=== PATIENT | female | born 1985 | race Caucasian/White ===

== ENCOUNTER → 2018-10-13 | Outpatient (CLI) | payer OTHER ==
--- NOTE | 2018-10-13 13:36 | RADIOLOGY REPORT (SQ) ---
EXAM DESCRIPTION: CT ABD/PELVIS NO ORAL OR IV COMPLETED DATE/TIME: 10/13/2018 1:17 pm REASON FOR STUDY: UNSP INTESTNL OBST, UNSP TO PARTIAL VERSUS COMPLETE OBST (K56.609) K56.609 UNS P INTESTNL OBST, UNSP TO PARTIAL VERSUS COMPLE COMPARISON: None. TECHNIQUE: CT scan of the abdomen and pelvis performed without intravenous or oral contrast. Images reviewed with lung, soft tissue, and bone windows. Reconstructed coronal and sagittal MPR images revi ewed. All images stored on PACS. All CT scanners at this facility use dose modulation, iterative reconstruction, and/or weight based d osing when appropriate to reduce radiation dose to as low as reasonably achievable (ALARA). [facility]: Dose Right [facility]: CareDose [facility]: Dose Right [facility]: Teradose 4D [facility]: MyRefers RADIATION DOSE: CT Rad equipment meets quality standard of care and radiation dose reduction techniq ues were employed. CTDIvol: 3.5 mGy. DLP: 186 mGy-cm.mGy. LIMITATIONS: None. FINDINGS: LOWER CHEST: No significant findings. No nodules or infiltrates. NON-CONTRASTED LIVER, SPLEEN, ADRENALS: Evaluation limited by lack of IV contrast. No identified sign ificant masses. PANCREAS: No masses. No peripancreatic inflammatory changes. GALLBLADDER: No identified stones by CT criteria. No inflammatory changes to suggest cholecystitis. RIGHT KIDNEY AND URETER: No suspicious masses. Assessment limited by lack of IV contrast. No signif icant calcifications. No hydronephrosis or hydroureter. LEFT KIDNEY AND URETER: No suspicious masses. Assessment limited by lack of IV contrast. No signifi cant calcifications. No hydronephrosis or hydroureter. AORTA AND RETROPERITONEUM: No aneurysm. No retroperitoneal masses or adenopathy. BOWEL AND PERITONEAL CAVITY: No obvious masses or inflammatory changes. No free fluid. APPENDIX: Normal. PELVIS, BLADDER, AND ABDOMINAL WALL:No abnormal masses. No free fluid. Bladder normal. BONES: No significant findings. OTHER: No other significant finding. IMPRESSION: No evidence of intestinal obstruction or other acute intraabdominal process. COMMENT: Quality ID # [id number]: Final reports with documentation of one or more dose reduction techniques (e.g., Automated exposure control, adjustment of the mA and/or kV according to patient size, use of iterative reconstruction technique) TECHNICAL DOCUMENTATION: JOB ID: [id number] [employer]- All Rights Reserved Reading location - IP/workstation name: [email or web address]
== END ==
LOC: RAD 12:45
PROVIDERS: ATTEND Internal Medicine Gastroenterology
DX: K50.10 Crohn's disease of large intestine without complications (principal)
CPT/HCPCS: 74176

== ENCOUNTER → 2018-10-25 | Outpatient (CLI) | payer OTHER ==
--- NOTE | 2018-10-25 16:44 | RADIOLOGY REPORT (SQ) ---
EXAM DESCRIPTION: UPPER GI/SM BOWEL COMPLETED DATE/TIME: 10/25/2018 11:45 am REASON FOR STUDY: CROHN'S COLITIS K50.10 CROHN'S DISEASE OF LARGE INTESTINE WITHOUT COMPLICATI COMPARISON: CT abdomen pelvis 10/13/2018 TECHNIQUE: Under fluoroscopic guidance, patient ingested effervescent granules followed by thick and thin barium. Fluoroscopic spot images and routine radiographic images acquired and stored on PACS. Barium followed through the small bowel and into the colon with serial overhead films. 12 MM BARIUM TABLET GIVEN: No. LIMITATIONS: None. FLUOROSCOPY TIME: FLUORO TIME: 4.1 minutes 21 series of digital fluoro images saved to PACS. FINDINGS: NEUROMUSCULAR COORDINATION OF SWALLOW: Normal. No aspiration. ESOPHAGEAL MOTILITY: Normal peristalsis. No esophageal spasm. ESOPHAGEAL MUCOSA: Normal mucosa without masses or ulceration. GASTRO-ESOPHAGEAL JUNCTION: No hiatal hernia or reflux. STOMACH: There are linear folds in the gastric antrum question healed gastric ulcer. Mild mucosal no dularity along the greater curvature body of stomach. Patient has a history of Crohn's disease, smal l post inflammatory pseudopolyps along the greater curvature of the stomach may be present. GASTRIC OUTLET: No delay in emptying. Normal pylorus. DUODENAL BULB: Normal distention. No spasm or ulceration. DUODENUM: Mucosa normal. No extrinsic masses or malrotation. PROXIMAL SMALL BOWEL: Mucosa normal. No extrinsic masses or malrotation. MID SMALL BOWEL: Mucosa normal. No diverticuli. No tethered appearing loops. DISTAL SMALL BOWEL: Mucosa normal. No diverticuli. No tethered appearing loops. Distal ileum unre markable. ASCENDING COLON: No annular constricting lesions. No focal narrowing NON-GI TRACT STRUCTURES: No significant finding. OTHER: No other significant finding. IMPRESSION: GREATER CURVATURE AND GASTRIC ANTRUM MUCOSAL IRREGULARITY, QUESTION EARLY FORMATION OF I NFLAMMATORY PSEUDO POLYPS ALONG THE GREATER CURVATURE OF THE STOMACH. QUESTION HEALING OR HEALED GAS TRIC ANTRAL ULCER. OTHERWISE, UNREMARKABLE DOUBLE CONTRAST BARIUM SWALLOW / UPPER GI SERIES/ SMALL BOWEL FOLLOW-THROUGH. COMMENT: Quality ID [id number]: Final reports for procedures using fluoroscopy that document radiation exp osure indices, or exposure time and number of fluorographic images (if radiation exposure indices are not available) TECHNICAL DOCUMENTATION: JOB ID: [id number] [employer]- All Rights Reserved Reading location - IP/workstation name: [email or web address]
== END ==
LOC: RAD 09:12
PROVIDERS: ATTEND Internal Medicine Gastroenterology
DX: K50.10 Crohn's disease of large intestine without complications (principal)
CPT/HCPCS: 74249

== ENCOUNTER 2019-03-02 14:36 | Emergency (ER) | payer OTHER ==
--- NOTE | 2019-03-02 15:50 | ER Document Report ---
ED Medical Screen (RME) - General Chief Complaint: Rectal Bleeding Stated Complaint: RECTAL BLEEDING Time Seen by Provider: 03/02/19 15:46 Primary Care Provider: LUKAS LIRA MD [Primary Care Provider] - Follow up as needed Notes: 33-year-old female presented to ED for complaint of large amount of rectal bleeding yesterday and today. She has a history of ulcerative colitis as well as Crohn's. She states that when she has a flareup sometimes she bleeds and she understands that but today the bleeding is been more than normal she is also had a migraine about the same time she is been bleeding in her toes have been cold and purple. She states she called her primary care and they sent her to the emergency room because they could not see her until Thursday. Patient states she has been increasing her fluid intake but she just wanted to be evaluated. I have greeted and performed a rapid initial assessment of this patient. A comprehensive ED assessment and evaluation of the patient, analysis of test results and completion of medical decision making process will be conducted by an additional ED providers. Dictation of this chart was performed using voice recognition software; therefore, there may be some unintended grammatical errors. TRAVEL OUTSIDE OF THE [place] IN LAST 30 DAYS: No - Related Data Allergies/Adverse Reactions: ibuprofen Allergy (Verified 03/02/19 14:39) Past Medical History - Social History Frequency of alcohol use: None Drug Abuse: None Pulmonary Medical History: Reports: Hx Asthma Renal/ Medical History: Denies: Hx Peritoneal Dialysis Past Surgical History: Reports: Hx Section Physical Exam - Vital signs Vitals: Temp Pulse Resp BP Pulse Ox 98.8 F 80 16 126/83 H 99 03/02/19 14:55 03/02/19 14:55 03/02/19 14:55 03/02/19 14:55 03/02/19 14:55 Course - Vital Signs Vital signs: Temp Pulse Resp BP Pulse Ox 98.8 F 80 16 126/83 H 99 03/02/19 14:55 03/02/19 14:55 03/02/19 14:55 03/02/19 14:55 03/02/19 14:55 Doctor's Discharge - Discharge Referrals: LUKAS LIRA MD [Primary Care Provider] - Follow up as needed
[2019-03-02 16:30] LABS: ABSOLUTE EOSINOPHILS # (AUTO) 0.2 10^3/uL (0.0-0.6); ABSOLUTE LYMPHOCYTES (AUTO) 2.5 10^3/uL (0.5-4.7); ABSOLUTE MONOCYTES (AUTO) 0.5 10^3/uL (0.1-1.4); ABSOLUTE NEUT (AUTO) 5.1 10^3/uL (1.7-8.2); BASOPHILS % (AUTO) 0.5 % (0-2); EOSINOPHILS % (AUTO) 1.9 % (0-6); HEMATOCRIT 39.8 % (36.0-47.0); HEMOGLOBIN 13.4 g/dL (12.0-15.5); LYMPHOCYTES % (AUTO) 29.6 % (13-45); MEAN CORPUSCULAR HEMOGLOBIN 30.3 pg (27.0-33.4); MEAN CORPUSCULAR HGB CONC 33.7 g/dL (32.0-36.0); MEAN CORPUSCULAR VOLUME 90 fl (80-97); MONOCYTES % (AUTO) 6.4 % (3-13); PLATELET COUNT 269 10^3/uL (150-450); RED BLOOD COUNT 4.42 10^6/uL (3.72-5.28); RED CELL DISTRIBUTION WIDTH 12.7 % (11.5-14.0); SEGMENTED NEUTROPHILS % (AUTO) 61.6 % (42-78); TOTAL CELLS COUNTED % (AUTO) 100 %; WHITE BLOOD COUNT 8.3 10^3/uL (4.0-10.5)
[2019-03-02 16:51] LABS: ALANINE AMINOTRANSFERASE 45 U/L (9-52); ALBUMIN 4.7 g/dL (3.5-5.0); ALKALINE PHOSPHATASE 43 U/L (38-126); ANION GAP 12 (5-19); ASPARTATE AMINO TRANSFERASE 30 U/L (14-36); BILIRUBIN,DIRECT 0.2 mg/dL (0.0-0.4); BILIRUBIN,TOTAL 0.7 mg/dL (0.2-1.3); BLOOD UREA NITROGEN 14 mg/dL (7-20); CARBON DIOXIDE 25 mmol/L (22-30); CHLORIDE 104 mmol/L (98-107); GLUCOSE 90 mg/dL (75-110); POTASSIUM 4.2 mmol/L (3.6-5.0); SODIUM 141.3 mmol/L (137-145); TOTAL PROTEIN 7.6 g/dL (6.3-8.2)
[2019-03-02 16:52] LABS: CALCIUM 9.7 mg/dL (8.4-10.2)
[2019-03-02] MEDS ORDERED: KETOROLAC TROMETHAMINE 60 MG/2 ML SDV IM ONE (23:26)
[2019-03-02] MEDS ORDERED: ONDANSETRON 4 MG TAB.RAPDIS PO ONE (23:26)
--- NOTE | 2019-03-02 23:31 | ER Document Report ---
ED General - General Chief Complaint: Rectal Bleeding Stated Complaint: RECTAL BLEEDING Time Seen by Provider: 03/02/19 15:46 Primary Care Provider: LUKAS LIRA MD [ACTIVE STAFF] - Follow up as needed Mode of Arrival: Ambulatory Information source: Patient Notes: 33-year-old female with migraine headaches, ulcerative colitis, Crohn's presents with complaint of headache and rectal bleeding. Patient states that her rectal bleeding started 2 weeks prior to arrival. She states that she has had bright red blood with every bowel movement. She states today she had 4 episodes of bloody stool patient reports 2 weeks of bright red blood with bowel movements. She states today she had 4 bowel movements that were bloody. Patient's headache has been ongoing for 7 years. She describes it as a aching throbbing pain in her headache that is associated with nausea but no vomiting. Patient also complaining of discoloration of her toes but reports a history of her raynaud's. Patient has taken Tylenol for headache without relief. Patient does have an upcoming appointment with her salvage engineering technician Dr. Bansal on Thursday. TRAVEL OUTSIDE OF THE [place] IN LAST 30 DAYS: No - HPI Onset: Other Onset/Duration: Gradual, Persistent Quality of pain: Achy, Throbbing Severity: Mild Pain Level: 2 Associated symptoms: Body/muscle aches, Diarrhea, Headache, Nausea. denies: Chills, Nonproductive cough, Productive cough, Fever, Vomiting, Shortness of breath Exacerbated by: Denies Relieved by: Denies Similar symptoms previously: Yes Recently seen / treated by doctor: Yes - Related Data Allergies/Adverse Reactions: ibuprofen Allergy (Verified 03/02/19 14:39) Past Medical History - General Information source: Patient, [facility] - Social History Smoking Status: Never Smoker Frequency of alcohol use: None Drug Abuse: None Lives with: Family, Spouse/Significant other Family History: Reviewed & Not Pertinent Patient has suicidal ideation: No Patient has homicidal ideation: No Pulmonary Medical History: Reports: Hx Asthma Renal/ Medical History: Denies: Hx Peritoneal Dialysis Past Surgical History: Reports: Hx Section Review of Systems - Review of Systems Notes: REVIEW OF SYSTEMS: CONSTITUTIONAL : Denies fever, chills, or sweats. Denies recent illness. Denies weight loss, recent hospitalizations. EENT: Denies visual changes, eye pain. Denies sore throat, oral lesions, difficulty swallowing. CARDIOVASCULAR: Denies chest pain. Denies palpitations. Denies lower extremity edema. RESPIRATORY: Denies cough. Denies shortness of breath, wheezing. GASTROINTESTINAL: Denies abdominal pain or distention. Denies vomiting, or diarrhea. Denies blood in vomitus. Denies black, tarry stools. Denies constipation. GENITOURINARY: Denies difficulty urinating, painful urination, frequency, blood in urine, or vaginal discharge. MUSCULOSKELETAL: Denies back or neck pain or stiffness. Denies joint pain or swelling. SKIN: Denies rash, lesions or sores. HEMATOLOGIC : Denies easy bruising or bleeding. LYMPHATIC: Denies swollen glands. NEUROLOGICAL: Denies confusion or altered mental status. Denies loss of consciousness. Denies dizziness or lightheadedness. Denies weakness or paralysis. Denies problems difficulty with ambulation, slurred speech. Denies sensory loss, numbness, or tingling. Denies seizures. PSYCHIATRIC: Denies anxiety or stress. Denies depression, suicidal ideation, or homicidal ideation. Denies visual or auditory hallucinations. Physical Exam - Vital signs Vitals: Temp Pulse Resp BP Pulse Ox 98.8 F 80 16 126/83 H 99 03/02/19 14:55 03/02/19 14:55 03/02/19 14:55 03/02/19 14:55 03/02/19 14:55 - Notes Notes: PHYSICAL EXAMINATION: GENERAL: Well-appearing, well-nourished and in no acute distress. HEAD: Atraumatic, normocephalic. EYES: Pupils equal round and reactive to light, extraocular movements intact, conjunctiva are normal. ENT: Nares patent, oropharynx clear without exudates. Moist mucous membranes. NECK: Normal range of motion, supple without lymphadenopathy LUNGS: Breath sounds clear to auscultation bilaterally and equal. No wheezes rales or rhonchi. HEART: Regular rate and rhythm without murmurs ABDOMEN: Soft, nontender, nondistended abdomen. No guarding, no rebound. No masses appreciated. Female : deferred Musculoskeletal: Normal range of motion, no pitting or edema. No cyanosis. NEUROLOGICAL: Cranial nerves grossly intact. Normal speech, normal gait. Normal sensory, motor exams PSYCH: Normal mood, normal affect. SKIN: Warm, Dry, normal turgor, no rashes or lesions noted. Course - Re-evaluation Re-evalutation: 03/02/19 23:32 Laboratory 03/02/19 03/02/19 03/02/19 16:15 16:15 16:15 WBC 8.3 RBC 4.42 Hgb 13.4 Hct 39.8 MCV 90 MCH 30.3 MCHC 33.7 RDW 12.7 Plt Count 269 Seg Neutrophils % 61.6 Lymphocytes % 29.6 Monocytes % 6.4 Eosinophils % 1.9 Basophils % 0.5 Absolute Neutrophils 5.1 Absolute Lymphocytes 2.5 Absolute Monocytes 0.5 Absolute Eosinophils 0.2 Absolute Basophils 0.0 Sodium 141.3 Potassium 4.2 Chloride 104 Carbon Dioxide 25 Anion Gap 12 BUN 14 Creatinine 0.64 Est GFR ( Amer) > 60 Est GFR (Non-Af Amer) > 60 Glucose 90 Calcium 9.7 Total Bilirubin 0.7 Direct Bilirubin 0.2 Neonat Total Bilirubin Not Reportable Neonat Direct Bilirubin Not Reportable Neonat Indirect Bili Not Reportable AST 30 ALT 45 Alkaline Phosphatase 43 Total Protein 7.6 Albumin 4.7 Serum HCG, Qual NEGATIVE Blood Type Antibody Screen 03/02/19 16:15 WBC RBC Hgb Hct MCV MCH MCHC RDW Plt Count Seg Neutrophils % Lymphocytes % Monocytes % Eosinophils % Basophils % Absolute Neutrophils Absolute Lymphocytes Absolute Monocytes Absolute Eosinophils Absolute Basophils Sodium Potassium Chloride Carbon Dioxide Anion Gap BUN Creatinine Est GFR ( Amer) Est GFR (Non-Af Amer) Glucose Calcium Total Bilirubin Direct Bilirubin Neonat Total Bilirubin Neonat Direct Bilirubin Neonat Indirect Bili AST ALT Alkaline Phosphatase Total Protein Albumin Serum HCG, Qual Blood Type A POSITIVE Antibody Screen NEGATIVE Temp Pulse Resp BP Pulse Ox 98.8 F 80 16 126/83 H 99 03/02/19 14:55 03/02/19 14:55 03/02/19 14:55 03/02/19 14:55 03/02/19 14:55 03/03/19 18:20 33-year-old female with migraine headaches, ulcerative colitis, Crohn's presents with complaint of headache and rectal bleeding. Patient states that her rectal bleeding started 2 weeks prior to arrival. She states that she has had bright red blood with every bowel movement. She states today she had 4 episodes of bloody stool patient reports 2 weeks of bright red blood with bowel movements. She states today she had 4 bowel movements that were bloody. Patient's headache has been ongoing for 7 years. She describes it as a aching throbbing pain in her headache that is associated with nausea but no vomiting. Patient also complaining of discoloration of her toes but reports a history of her raynaud's. Patient has taken Tylenol for headache without relief. Patient does have an upcoming appointment with her salvage engineering technician Dr. Bansal on Thursday. Vital signs reviewed and within normal limits. Patient does not appear toxic or dehydrated patient. Patient has a stable hemoglobin of 13.4. Patient has no active bleeding currently. Her other complaints of headache and toe discoloration are chronic. She has a strong PT and PT pulse, no evidence of occlusion. Patient provided Toradol, Zofran and a prescription for mesalamine. 03/03/19 18:21 Patient was evaluated and treated as appropriate for the patient's presenting symptoms and complaint, with consideration of any critical or life threatening conditions that may be associated with their obtained history and exam as noted above. All results were discussed with patient . Patient provided the opportunity to ask questions, and express concerns. Patient was educated on treatments based on their presumed diagnosis as noted above. At this time we will discharge the patient with return precautions and follow-up recommendations. Verbal discharge instructions given a the bedside. Medication warnings reviewed. Patient is in agreement with this plan and has verbalized understanding of return precautions. After careful consideration I feel that that patient can be safely discharged from the emergency department, they were advised to followup with a primary care physician in 2-3 days. Dictation on this chart was performed using voice recognition software and may result in unintended grammatical, spelling, syntax or errors. - Vital Signs Vital signs: Temp Pulse Resp BP Pulse Ox 98.7 F 91 16 113/71 98 03/03/19 00:05 03/03/19 00:05 03/02/19 14:55 03/03/19 00:05 03/03/19 00:05 - Laboratory Result Diagrams: 03/02/19 16:15 03/02/19 16:15 Discharge - Discharge Clinical Impression: Bright red blood per rectum Ulcerative colitis Qualifiers: Ulcerative colitis location: unspecified ulcerative colitis location Digestive disease complication type: unspecified complication Qualified Code(s): K51.919 - Ulcerative colitis, unspecified with unspecified complications Headache Qualifiers: Headache type: unspecified Headache chronicity pattern: unspecified pattern Intractability: not intractable Qualified Code(s): R51 - Headache Raynauds syndrome Qualifiers: Raynaud?s-associated gangrene presence: without gangrene Qualified Code(s): I73.00 - Raynaud's syndrome without gangrene Condition: Good Disposition: HOME, SELF-CARE Instructions: Headache ([facility]), Rectal Bleeding, Unclear Cause ([facility]), Ulcerative Colitis ([facility]) Additional Instructions: Please follow-up with your salvage engineering technician as already scheduled. Follow up with your [id number] hours for further care or return to the ED IMMEDIATELY if symptoms worsen or you have any concerns. If you cannot afford to follow up with your primary care physician a list of low cost clinics have been provided at the end of your discharge papers as well. Most prescribed medications have multiple side effects. The safest thing to do is when filling your prescription speak to your pharmacist regarding possible interactions with your normal home medications and over the counter medications such as Ibuprofen, Tylenol, Benadryl. If you experience any symptoms that cause you discomfort or concern you should discontinue the medication immediately and return to the emergency room or call your primary care physician. Prescriptions: RX: Mesalamine [Rowasa 4 gm/60 ml Enema] 4 gm [place] QHS #14 enema Metoclopramide HCl [Reglan 10 mg Tablet] 1 tab PO Q8H PRN #10 tablet PRN Reason: For Headache Forms: Return to Work Referrals: LUKAS LIRA MD [ACTIVE STAFF] - Follow up as needed
[2019-03-03 00:10] VITALS: BP 113/71
== END 2019-03-03 00:18 | disposition home or self-care (01) ==
LOC: ER 14:36
DX: K51.911 Ulcerative colitis, unspecified with rectal bleeding (principal); I73.00 Raynaud's syndrome without gangrene; R51 Headache; R11.0 Nausea; M79.10 Myalgia, unspecified site; J45.909 Unspecified asthma, uncomplicated
CPT/HCPCS: 99283; 96372; 86900; 86901; 36415; 86850; 84703; 85025; 80053; J1885; S0119